=== PATIENT | male | born 1995 | race African-American/Black ===

== ENCOUNTER 2021-10-28 13:27 | Emergency (ER) | payer SELFPAY ==
[~2021-10-28] VITALS: Ht 167.6 cm; Wt 90.0 kg
[2021-10-28] MEDS ORDERED: KETOROLAC 30MG/ML VIAL IM ONE (14:00)
[2021-10-28] MEDS ORDERED: TOPUD MT (15:13)
[2021-10-28] MEDS ORDERED: IBUP-2029 MT (15:13)
[2021-10-28 15:28] VITALS: BP 109/57
== END 2021-10-28 15:38 | disposition home or self-care (01) ==
LOC: ER 14:01
DX: R51.9 Headache, unspecified (principal); J06.9 Acute upper respiratory infection, unspecified; Z88.0 Allergy status to penicillin; Z20.822 Contact with and (suspected) exposure to COVID-19
CPT/HCPCS: 87426; 87804; 96372; 99283; J1885

== ENCOUNTER 2025-06-07 20:25 | Emergency (ER) | payer SELFPAY ==
[~2025-06-07] VITALS: Ht 185.4 cm; Wt 96.7 kg
[~2025-06-07 20:25] MED LIST: IBUP-1455 MT; TOPUD MT
[2025-06-07 20:44] VITALS: O2SAT 100
[2025-06-07 23:02] VITALS: BP 103/47; PULSE 63; RESP 16; TEMP 37.2; O2SAT 99
== END 2025-06-07 23:06 | disposition home or self-care (01) ==
LOC: ER 20:25
DX: J02.9 Acute pharyngitis, unspecified (principal); J45.909 Unspecified asthma, uncomplicated; Z88.0 Allergy status to penicillin
CPT/HCPCS: 99282